=== PATIENT | female | born 1970 | race Caucasian/White ===

== ENCOUNTER 2024-06-27 10:45 | Outpatient (CLI) | payer OTHER ==
[2024-06-27] MEDS ORDERED: Iopamidol 300 61% 100 ML VIAL FS ONE (11:16)
== END 2024-06-27 10:46 | disposition home or self-care (01) ==
LOC: CSHCT 10:45
PROVIDERS: ATTEND Nurse Practitioner Family
DX: R91.8 Other nonspecific abnormal finding of lung field (principal)
CPT/HCPCS: 71260